=== PATIENT | female | born 1995 | race Hispanic/Latino ===

== ENCOUNTER 2022-04-26 11:22 | Emergency (ER) | payer OTHER ==
[~2022-04-26] VITALS: Ht 160 cm; Wt 80.7 kg
[2022-04-26] MEDS ORDERED: CIPRODEX OTIC7.5 ML OT (11:34)
[2022-04-26] MEDS ORDERED: AMOXICILLIN500 MG PO (11:34)
== END 2022-04-26 11:59 | disposition home or self-care (01) ==
LOC: ER 11:26
DX: H66.91 Otitis media, unspecified, right ear (principal); H72.91 Unspecified perforation of tympanic membrane, right ear; H60.91 Unspecified otitis externa, right ear
CPT/HCPCS: 99283